=== PATIENT | female | born 1980 | race Caucasian/White ===

== ENCOUNTER 2018-05-19 16:34 | Emergency (ER) | payer BC, OTHER ==
[~2018-05-19] VITALS: Ht 165.1 cm; Wt 99.8 kg
[~2018-05-19 16:34] MED LIST: PHENERGAN25 MG/1 ML PO; PROZAC20 MG PO; RELPAX40 MG PO; SIMVASTATIN20 MG PO
[2018-05-19] MEDS ORDERED: KETOROLAC TROMETHAMINE 30 MG/ML VIAL IV STA (16:47)
[2018-05-19] MEDS ORDERED: HYDROCODONE/APAP 5MG-325MG TAB PO ONE (17:00)
[2018-05-19] MEDS ORDERED: DIPHENHYDRAMINE HCL INJ 50 MG/ML VIAL IV ONE (17:00)
[2018-05-19] MEDS ORDERED: METOCLOPRAMIDE HCL 10 MG/2ML VIAL IV ONE (17:00)
[2018-05-19] MEDS ORDERED: IOPAMIDOL 370 MG/ML 50ML INFUS..BTL INJ ONE (17:35)
[2018-05-19 19:18] VITALS: BP 135/86
== END 2018-05-19 19:20 | disposition home or self-care (01) ==
LOC: FSED 16:34
DX: G43.019 Migraine without aura, intractable, without status migrainosus (principal); I10 Essential (primary) hypertension
CPT/HCPCS: 70496; 80053; 81025; 85025; 96374; 96375; 99284; J1200; J1885; J2765; Q9967